=== PATIENT | male | born 1970 | race Caucasian/White ===

== ENCOUNTER 2020-10-17 14:14 | Emergency (ER) | payer OTHER ==
[~2020-10-17] VITALS: Ht 175.3 cm; Wt 77.3 kg
[~2020-10-17 14:14] MED LIST: ALBU8HFA4 IH
[2020-10-17 14:17] VITALS: BP 129/78
== END 2020-10-17 15:32 | disposition home or self-care (01) ==
LOC: EMS 14:19
DX: F10.10 Alcohol abuse, uncomplicated (principal); F41.9 Anxiety disorder, unspecified; J45.909 Unspecified asthma, uncomplicated; F17.210 Nicotine dependence, cigarettes, uncomplicated
CPT/HCPCS: 99281; Z7502

== ENCOUNTER 2021-06-08 15:04 | Emergency (ER) | payer SELFPAY ==
[~2021-06-08] VITALS: Ht 177.8 cm; Wt 84.1 kg
[2021-06-08 15:06] VITALS: BP 124/84
[2021-06-08] MEDS ORDERED: BACITRACIN 0.9 GM PACKET OINTMENT TP ONE (15:45)
[2021-06-08] MEDS ORDERED: PERTUSS(ACELL),DIPH,TET VAC/PF 0.5 ML SYRINGE IM. ONE (15:45)
== END 2021-06-08 16:25 | disposition home or self-care (01) ==
LOC: EMS 15:05
DX: S01.312A Laceration without foreign body of left ear, initial encounter (principal); J45.909 Unspecified asthma, uncomplicated; F17.210 Nicotine dependence, cigarettes, uncomplicated; F12.90 Cannabis use, unspecified, uncomplicated; W11.XXXA Fall on and from ladder, initial encounter; Y93.89 Activity, other specified; Y92.89 Other specified places as the place of occurrence of the external cause; Y99.8 Other external cause status
CPT/HCPCS: 12013; 90471; 90715; 99283